=== PATIENT | female | born 1975 | race Caucasian/White ===

== ENCOUNTER 2019-08-13 21:19 | Emergency (ER) | payer BC ==
[2019-08-13] MEDS ORDERED: Lidocaine 1% 30 ML SDV INJECT ONE (21:35)
--- NOTE | 2019-08-13 21:57 | EDM.PDOC ---
ED [facility] GENERAL MEDICAL PROBLEM - General Chief Complaint: Laceration Stated Complaint: LACERATION FINGER Time Seen by Provider: 08/13/19 21:40 Source of Information: Reports: Patient History Limitations: Reports: No Limitations - History of Present Illness INITIAL COMMENTS - FREE TEXT/NARRATIVE: ed with laceration to left index finger, cutting watermelon and knife slipped. Tetanus current. 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 ED EXAM, SKIN/RASH Exam: See Below Exam Limited By: No Limitations General Appearance: Alert, Anxious, Mild Distress Eye Exam: Bilateral Eye: EOMI Ears: Normal External Exam Throat/Mouth: Normal Inspection, Normal Voice Respiratory/Chest: No Respiratory Distress Cardiovascular: Normal Peripheral Pulses, Regular Rate, Rhythm Back Exam: Full Range of Motion Neurological: Alert Skin: Warm, Dry, Normal Color, Wound/Incision (flap lacerationleft index finger outer, flexion extension intact, bleeding controlled) Location, Skin: Upper Extremity, Left Associated features: Warmth, Tenderness ED SKIN PROCEDURES - Laceration/Wound Repair Left Middle Digit - 2nd (Index) Appearance: Superficial Local Anesthesia - Lidocaine (Xylocaine): 1% Plain Local Anesthetic Volume: 2cc Skin Prep: Chlorhexidine (Hibiciens), Saline Lac/Wound length In cm: 1.5 Suture Size: 4-0 # of Sutures: 5 Suture Type: Nylon, Interrupted Sterile Dressing Applied: Nurse Tetanus Status Addressed: Yes Complications: No Course - Vital Signs Last Recorded V/S: Last Vital Signs Temp 96.8 F L 08/13/19 21:31 Pulse 90 08/13/19 21:31 Resp 18 08/13/19 21:31 BP 143/89 H 08/13/19 21:31 Pulse Ox 100 08/13/19 21:31 - Orders/Labs/Meds Meds: Medications Discontinued Medications Generic Name Dose Route Start Last Admin Trade Name Pal PRN Reason Stop Dose Admin Bacitracin 1 dose 08/13/19 22:45 08/13/19 22:48 Bacitracin Oint 1 Gm TOP 08/13/19 22:46 1 dose ONETIME ONE Administration Lidocaine HCl 30 ml 08/13/19 21:35 08/13/19 22:22 Xylocaine-Mpf 1% INJECT 08/13/19 21:36 10 ml ONETIME ONE Administration Departure - Departure Time of Disposition: 22:58 Disposition: Home, Self-Care 01 Condition: Good Clinical Impression: Finger laceration Qualifiers: Encounter type: initial encounter Finger: little finger Damage to nail status: without damage Foreign body presence: without foreign body Laterality: left Qualified Code(s): S61.217A - Laceration without foreign body of left little finger without damage to nail, initial encounter - Discharge Information *PRESCRIPTION DRUG MONITORING PROGRAM REVIEWED*: No *COPY OF PRESCRIPTION DRUG MONITORING REPORT IN PATIENT JULIAN: No Instructions: Laceration Care, Adult, [id number] Forms: ED Department Discharge Additional Instructions: splint x 48 hours then as needed for comfort dressing change twice daily wash with soap and water bacitracin twice daily sutures out 10-14 days follow up if increased redness swelling or drainage alternate tylenol 650mg and ibuprofen 600mg every every 4 hours as needed for discomfort Sepsis Event Note (ED) - Evaluation Sepsis Screening Result: No Definite Risk
--- NOTE | 2019-08-13 22:01 | CR ---
PROCEDURE INFORMATION: Exam: XR Left Finger(s) Exam date and time: 08/13/2019 9:49 PM Age: 44 years old Clinical indication: Other: Laceration; Additional info: Cut deep with knife TECHNIQUE: Imaging protocol: XR Left fingers. Views: Minimum 2 views. COMPARISON: No relevant prior studies available. FINDINGS: Bones/joints: No fracture, dislocation, or radiopaque foreign body. Soft tissues: Normal. IMPRESSION: No fracture, dislocation, or radiopaque foreign body.
[2019-08-13] MEDS ORDERED: Bacitracin Oint 1 GM U/D Packet TOP ONE (22:45)
== END 2019-08-13 23:04 | disposition home or self-care (01) ==
LOC: DL.ED 21:19
DX: S61.211A Laceration without foreign body of left index finger without damage to nail, initial encounter (principal); I10 Essential (primary) hypertension; Z79.899 Other long term (current) drug therapy; W26.0XXA Contact with knife, initial encounter
CPT/HCPCS: 12001; 73140; 99282; J2001